=== PATIENT | female | born 1960 | race Caucasian/White ===

== ENCOUNTER → 2018-04-12 | Outpatient (CLI) | payer OTHER ==
--- NOTE | 2018-04-12 17:11 | KCIC ---
EXAMINATION: Magnetic resonance imaging (MRI) of the brain and brainstem without contrast 04/12/2018 4:15 PM HISTORY: Forgetfulness. Progressive memory loss and confusion. TECHNIQUE: Multiplanar multi-weighted MRI of the brain and brainstem was performed without intravenous contrast using the general brain protocol. COMPARISON: None available. FINDINGS: The scalp and calvarium are normal. The superior sagittal sinus demonstrates normal venous flow. The corpus callosum is normal in shape and signal intensity. The posterior fossa is unremarkable. The pituitary and sella are normal. The brainstem and craniocervical junction are unremarkable. Diffusion weighted images reveal no hyperintensities to suggest acute cerebral infarction. The susceptibility weighted sequences reveal no evidence of acute or chronic hemorrhage. The ventricles are normal in size and position without evidence of hydrocephalus. The paranasal sinuses are normal. The visualized portions of the mastoids are unremarkable. The orbits appear normal. Normal flow voids are demonstrated in the carotid arteries and basilar artery. Nasal septum is deviated to the right. IMPRESSION: No evidence for acute or subacute ischemia. No acute intracranial abnormalities visualized. Electronically signed by: Elida Alston MD (04/12/2018 5:08 PM) [id number]
== END | disposition home or self-care (01) ==
LOC: KCIC MRI 15:47
PROVIDERS: ATTEND Family Medicine
DX: R41.3 Other amnesia (principal); J34.2 Deviated nasal septum
CPT/HCPCS: 70551